=== PATIENT | female | born 1945 | race Hispanic/Latino ===

== ENCOUNTER 2017-07-24 19:59 | Emergency (ER) | payer MEDICARE ==
[2017-07-24 20:01] VITALS: BMI 23.3
--- NOTE | 2017-07-24 20:19 | ED PDOC ---
HPI: Trauma/Fall - HPI Time Seen by Provider: 07/24/17 20:05 Chief Complaint (Nursing): Upper Extremity Problem/Injury History Per: Patient History/Exam Limitations: no limitations Onset/Duration Of Symptoms: Mins Additional Complaint(s): Hx of osteopenia presenting with fall, states she slipped and fell, states the most injury occurred in her R arm where she braced herself, states that she also hit her head but has no pain there nor headache. No neck pain, no back pain. States she also has some rib pain when sitting up but does not feel shortness of breath. No numbness, tingling, or other neurological symptom. - Fall Fall:Prior To Injury: Tripped, Slipped. denies: Passed Out, Almost Passed Out, [place] Lightheaded, Vertigo Past Medical History Reviewed: Historical Data, Nursing Documentation, Vital Signs Vital Signs: Last Vital Signs Temp 96.6 F L 07/24/17 20:01 Pulse 94 H 07/24/17 20:01 Resp 17 07/24/17 20:01 BP 127/82 07/24/17 20:01 Pulse Ox 98 07/24/17 20:01 - Family History Family History: States: Unknown Family Hx - Allergies Allergies/Adverse Reactions: Allergies Allergy/AdvReac Type Severity Reaction Status Date / Time Penicillins Allergy Verified 07/24/17 20:14 Review of Systems ROS Statement: Except As Marked, All Systems Reviewed And Found Negative Physical Exam - Reviewed Nursing Documentation Reviewed: Yes Vital Signs Reviewed: Yes - Physical Exam Appears: Positive for: Well, Non-toxic, No Acute Distress Head Exam: Positive for: NORMAL INSPECTION, NORMOCEPHALIC. Negative for: ATRAUMATIC (R sided forehead with hematoma, small, 4x4cm) Skin: Positive for: Normal Color Eye Exam: Positive for: Normal appearance, EOMI, PERRL ENT: Positive for: Normal ENT Inspection Neck: Positive for: Normal, Painless ROM, Supple Cardiovascular/Chest: Positive for: Regular Rate, Rhythm. Negative for: Chest Non Tender (R sided rib tenderness, no stepoff/crepitus/bruising) Respiratory: Positive for: Normal Breath Sounds. Negative for: Decreased Breath Sounds, Accessory Muscle Use, Crackles, Rales, Rhonchi Gastrointestinal/Abdominal: Positive for: Normal Exam, Bowel Sounds, Soft. Negative for: Tenderness Back: Positive for: Normal Inspection. Negative for: Vertebral Tenderness, Decreased ROM, Muscle Spasm Rectal: Positive for: Deferred Extremity: Positive for: Swelling (L wrist swelling with deformity, warm and well perfused with good distal pulses, decreased ROM of flexion and extension of the wrist) Neurologic/Psych: Positive for: Alert, plateman II-XII, Oriented. Negative for: Motor/Sensory Deficits, Mood/Affect - ECG O2 Sat by Pulse Oximetry: 98 Medical Decision Making Medical Decision MakinPM A/P: Hx of osteopenia with traumatic fall and wrist pain -likely wrist fracture -patient takes aspirin at night, will get head CT as well -will get xrays of the wrist for likely fracture, likely muscle pull/strain from fall in ribs but will get xray to r/o fracture 1130PM -Status post successful reduction of fracture, more anatomical alignment achieved, however still some displacement, will likely need OR repair as outpatient, patient states she will followup at [facility] for her orthopedic care -CT head negative -Patient is now awake, alert, steady gait, feeling better after versed/reduction -Patient given CT of findings, return precautions were discussed -Ambulatory, pleasant, gracious upon discharge Procedures - Additional Procedures Progress: Fracture Reduction Procedure Note: Performed at bedside Patient placed on monitor, IV, O2 established Patient given 6mg of versed IV with adequate response Patient remained awake, breathing normally, however more comfortable, patient able to relay feedback during procedure Fingers placed in finger traps, weight placed on arm using 4 IV bags Successful realignment created Sugar tong placed with EDT Salo assisting Neurovascularly intact afterwards, patient reported feeling better Disposition - Clinical Impression Clinical Impression: Fracture of wrist - Patient ED Disposition Is Patient to be Admitted: No - Disposition Referrals: Ezekiel Pandya MD [Staff Provider] - Disposition: Routine/Home Disposition Time: 06:13 Condition: IMPROVED Additional Instructions: It was an absolute pleasure to help you today. Please followup with your orthopedic surgeon in 1 week. Take advil or tylenol for pain. Instructions: Wrist Fracture (DC), Closed Fracture Reduction, Cast Care Forms: [employer] ([place]ots[place]an)
[2017-07-24] MEDS ORDERED: diaZEpam 10 mg/2 ml Inj IVP ONE (21:26)
[2017-07-24] MEDS ORDERED: Midazolam 2 MG/2 ML VIAL IV ONE (21:44)
[2017-07-24] MEDS ORDERED: Flumazenil 0.1 mg/ml Inj (5ml) IVP ONE (21:48)
--- NOTE | 2017-07-24 22:15 | RAD ---
EXAM: XR Right Ribs and AP Chest, 3 or More Views EXAM DATE/TIME: 07/24/2017 8:15 PM CLINICAL HISTORY: 72 years old, female; Injury or trauma; Fall; Work related; Initial encounter; Rib area; Blunt trauma (contusions or hematomas); Injury details: Pain under breastbone; Additional info: S/P fall TECHNIQUE: Frontal and oblique views of the right ribs and frontal view of the chest. COMPARISON: No relevant prior studies available. FINDINGS: LUNGS: Lungs are hyperinflated, suggestive of underlying COPD. Hazy density projected over both lung bases, which is symmetric in appearance, and is felt to be related to overlying soft tissues. No evidence of significant focal consolidation/infiltrate in the lungs. No evidence of diffuse pulmonary vascular congestion. PLEURAL SPACE: No pneumothorax or pleural effusions seen. HEART: Heart does not appear significantly enlarged. MEDIASTINUM: No radiographic evidence of significant pneumomediastinum. BONES/JOINTS: Bony structures appear demineralized. Scoliotic curvature of the spine. Bony protrusion arising from the right distal humeral shaft, most likely an exostosis. No acute fractures are seen radiographically. VASCULATURE: Thoracic aorta appears mildly ectatic. IMPRESSION: - No radiographic evidence of significant acute traumatic injury in the chest. - Hyperinflation, suggestive of underlying COPD. - See above for multiple remaining non-emergent findings.
--- NOTE | 2017-07-24 22:25 | RAD ---
EXAM: XR Right Wrist Complete, 3 or More Views EXAM DATE/TIME: 07/24/2017 8:15 PM CLINICAL HISTORY: 72 years old, female; Injury or trauma; Fall; Work related; Initial encounter; Blunt trauma (contusions or hematomas; Wrist; Right TECHNIQUE: Frontal, lateral and oblique views of the right wrist. COMPARISON: No relevant prior studies available. FINDINGS: BONES/JOINTS: Acute fracture of the distal radius. This involves the articular surface diffusely. It is markedly comminuted, and is associated with significant impaction of fracture fragments. There is shortening of the distal radius relative to the ulna. There is mild apex dorsal angulation at the fracture site. Acute fracture of the ulnar styloid process, which is minimally displaced. Bony structures appear demineralized. No additional acute fractures seen. Alignment of the carpal bones is within normal limits. SOFT TISSUES: Back right hallux. IMPRESSION: - Acute, comminuted, intra-articular fracture of the distal radius, associated with significant impaction. Please see above for a full description. - Fracture of the ulnar styloid process. - See above for remaining findings.
--- NOTE | 2017-07-24 23:22 | CT ---
EXAM: CT Head Without Intravenous Contrast EXAM DATE/TIME: 07/24/2017 10:25 PM CLINICAL HISTORY: 72 years old, female; Injury or trauma; Fall; Work related; Initial encounter; Abrasion; Scalp; Additional info: Head injury on asa TECHNIQUE: Axial computed tomography images of the head/brain without intravenous contrast. All CT scans at this facility use one or more dose reduction techniques, viz.: automated exposure control; ma/kV adjustment per patient size (including targeted exams where dose is matched to indication; i.e. head); or iterative reconstruction technique. Coronal and sagittal reformatted images were created and reviewed. COMPARISON: No relevant prior studies available. FINDINGS: LIMITATIONS: Mild streak/motion artifact. BRAIN: Focal area of low density in the left basal ganglia, most compatible with an old/chronic lacunar infarct. Physiologic calcification in the left basal ganglia. No acute abnormality identified. No acute hemorrhage seen within the brain. No acute extra-axial fluid collections visualized. No evidence of significant mass effect within the brain. VENTRICLES: No evidence of significant hydrocephalus. BONES/JOINTS: No acute fractures or other acute bony abnormality noted. SOFT TISSUES: No acute abnormality of the visualized soft tissues is seen. SINUSES: Mild mucosal thickening in the left maxillary sinus. Remaining visualized paranasal sinuses appear clear. MASTOID AIR CELLS: Mastoid air cells appear clear. IMPRESSION: - No evidence of acute intracranial injury or fractures. - See above for remaining findings.
[2017-07-25 06:57] VITALS: BP 112/62; PULSE 70; RESP 13; TEMP 98.6; O2SAT 100
--- NOTE | 2017-07-25 09:25 | RAD ---
PROCEDURE: Right Wrist Radiographs. HISTORY: post-reduction COMPARISON: COMPARISON IS MADE WITH THE PREVIOUS STUDY. FINDINGS: BONES: AGAIN NOTED IS IMPACTED COMMINUTED FRACTURE AT THE DISTAL RIGHT RADIUS EXTENDING TO THE ARTICULAR SURFACE AND ASSOCIATED WITH SLIGHT VOLAR ANGULATION. INTERVAL MILD IMPROVEMENT IN THE ALIGNMENT OF THE FRACTURE. ACUTE NONDISPLACED FRACTURE AT THE STYLOID PROCESS OF THE RIGHT ULNA AGAIN NOTED. JOINTS: No evidence of dislocation. SOFT TISSUES: Normal. OTHER FINDINGS: None. IMPRESSION: The right wrist in cast. Interval mild improvement in the alignment of the bones at the distal radius and ulna fractures.
== END 2017-07-25 06:35 | disposition home or self-care (01) ==
LOC: H.ER 19:59
DX: S62.101A Fracture of unspecified carpal bone, right wrist, initial encounter for closed fracture (principal); W19.XXXA Unspecified fall, initial encounter; Z79.82 Long term (current) use of aspirin; Z88.0 Allergy status to penicillin
CPT/HCPCS: 25660; 70450; 71101; 73110; 96374; 99285; J2250

== ENCOUNTER 2017-07-30 10:55 | Emergency (ER) | payer OTHER, MEDICARE ==
[2017-07-30 10:55] VITALS: BMI 23.3
[2017-07-30] MEDS ORDERED: Oxycodone/Acetaminophen 5/325 mg Tab PO STA (11:33)
[2017-07-30] MEDS ORDERED: Sodium Chloride 0.9% 1,000 ML IV STA (11:49)
--- NOTE | 2017-07-30 12:09 | ED PDOC ---
Upper Extremity Pain/Injury Time Seen by Provider: 07/30/17 11:28 Chief Complaint (Nursing): Upper Extremity Problem/Injury Chief Complaint (Provider): Upper Extremity Problem/Injury History Per: Patient History/Exam Limitations: no limitations Onset/Duration Of Symptoms: Days (x2) Current Symptoms Are (Timing): Still Present Additional Complaint(s): 72 y/o female with no significant pmhx, who presents to the ED for an evaluation of a right hand pain x2 days. Patient was seen here 07/24/2017 s/p fall. She was diagnosed with a distal radial fracture which was reduced in ED and sugar tong splint was placed. She reports numbness, tingling, and swelling onset 2 days ago in her fingers. Patient states her hands dont feel cold. Past Medical History Reviewed: Historical Data, Nursing Documentation, Vital Signs Vital Signs: Last Vital Signs Temp 98.1 F 07/30/17 11:32 Pulse 57 L 07/30/17 11:32 Resp 18 07/30/17 11:32 BP 74/47 L 07/30/17 11:32 Pulse Ox 96 07/30/17 11:32 - Medical History PMH: No Chronic Diseases - Surgical History Surgical History: No Surg Hx - Family History Family History: States: Unknown Family Hx - Social History Current smoker - smoking cessation education provided: No Alcohol: None Drugs: Denies - Home Medications Home Medications: Ambulatory Orders Medication Instructions Recorded oxyCODONE/Acetaminophen [Percocet 1 tab PO Q6 PRN #20 tab 07/30/17 5/325 mg Tab] - Allergies Allergies/Adverse Reactions: Allergies Allergy/AdvReac Type Severity Reaction Status Date / Time Penicillins Allergy Verified 07/24/17 20:14 Review of Systems ROS Statement: Except As Marked, All Systems Reviewed And Found Negative Musculoskeletal: Positive for: Hand Pain (right) Neurological: Positive for: Numbness (and tingling of right hand) Physical Exam - Reviewed Nursing Documentation Reviewed: Yes Vital Signs Reviewed: Yes - Physical Exam Appears: Positive for: Non-toxic, No Acute Distress Head Exam: Positive for: ATRAUMATIC, NORMAL INSPECTION, NORMOCEPHALIC Skin: Positive for: Normal Color, Warm, Dry. Negative for: Rash Eye Exam: Positive for: EOMI, Normal appearance, PERRL Neck: Positive for: Normal, Painless ROM, Supple Cardiovascular/Chest: Positive for: Regular Rate, Rhythm. Negative for: Murmur Respiratory: Positive for: Normal Breath Sounds. Negative for: Respiratory Distress Gastrointestinal/Abdominal: Positive for: Normal Exam, Soft. Negative for: Tenderness Back: Positive for: Normal Inspection. Negative for: L CVA Tenderness, R CVA Tenderness, Vertebral Tenderness Extremity: Positive for: Normal ROM, Other (sugar splint in place on right arm; ecchymosis and edema in digits of right hand, sensation in tact and moving all digits) Neurologic/Psych: Positive for: Alert, Oriented. Negative for: Motor/Sensory Deficits - ECG O2 Sat by Pulse Oximetry: 96 (RA) Pulse Ox Interpretation: Normal Medical Decision Making Medical Decision Making: Initial Impression: Generalized joint pain Plan: Splint removed and patient complaining of increasing pain. Patient states she feels as if shell pass out from the pain. Blood pressure decreased to 74/47. Patient placed in trendelenburg and IV line placed. Repeat BP 130 systolic. IV fluids started. --Glucose, POC --Morphine 1mg IV --Motrin 600mg PO --1LNS --Percocet 1 tab --Right Wrist X-Ray --Reevaluation ----- Scribe Attestation: Documented by Lang Sue, acting as a scribe for Smii Welch MD. Provider Scribe Attestation: All medical record entries made by the Scribe were at my direction and personally dictated by me. I have reviewed the chart and agree that the record accurately reflects my personal performance of the history, physical exam, medical decision making, and the department course for this patient. I have also personally directed, reviewed, and agree with the discharge instructions and disposition. ------ Time: 1401 WRIST XRAY RESULTS FINDINGS: BONES: Current study re- demonstrates a comminuted impacted fracture of the distal right radius with dorsal angulation of distal fragments. Fracture of the ulna styloid again noted. . No significant callus formation identified JOINTS: Normal. No dislocation. SOFT TISSUES: Normal. OTHER FINDINGS: None. IMPRESSION: Re- demonstrated angulation is impacted/comminuted fractures of the distal right radius with dorsal angulation of the distal fragment. Minimally displaced fracture distal ulna styloid again noted. No significant callus formation is identified. New sugar tong splint placed, yaron wrap adjusted by me, sling, pt without paresthesias in fingers, sensation intact, <2 sec cap refill, edema improved. Scribe Attestation: Documented by Jm Elena, acting as a scribe for Dr. Simi Welch. Provider Scribe Attestation: All medical record entries made by the Scribe were at my direction and personally dictated by me. I have reviewed the chart and agree that the record accurately reflects my personal performance of the history, physical exam, medical decision making, and the department course for this patient. I have also personally directed, reviewed and agree with the discharge instructions and disposition. Disposition - Clinical Impression Clinical Impression: Fracture of wrist - Disposition Disposition: Routine/Home Disposition Time: 14:52 Condition: IMPROVED Additional Instructions: FOLLOW-UP WITH DR. ATWOOD SCHEDULED. Prescriptions: oxyCODONE/Acetaminophen [Percocet 5/325 mg Tab] 1 tab PO Q6 PRN #20 tab PRN Reason: Pain, Moderate (4-7) Instructions: Wrist Fracture (DC) Forms: [employer] (Angolan)
--- NOTE | 2017-07-30 14:03 | RAD ---
PROCEDURE: Right Wrist Radiographs. Three views of the right wrist performed through a fiberglass cast which obscures fine soft tissue and bone detail. HISTORY: Re- evaluation. COMPARISON: Comparison made with radiographs right wrist 07/24/2017. FINDINGS: BONES: Current study re- demonstrates a comminuted impacted fracture of the distal right radius with dorsal angulation of distal fragments. Fracture of the ulna styloid again noted. . No significant callus formation identified JOINTS: Normal. No dislocation. SOFT TISSUES: Normal. OTHER FINDINGS: None. IMPRESSION: Re- demonstrated angulation is impacted/comminuted fractures of the distal right radius with dorsal angulation of the distal fragment. Minimally displaced fracture distal ulna styloid again noted. No significant callus formation is identified
[2017-07-30 15:07] VITALS: BP 112/60; PULSE 81; RESP 14; TEMP 97.9; O2SAT 100
== END 2017-07-30 15:08 | disposition home or self-care (01) ==
LOC: H.ER 10:55
DX: Z47.89 Encounter for other orthopedic aftercare (principal); Z88.0 Allergy status to penicillin
CPT/HCPCS: 29125; 73110; 82948; 96374; 99281; J2270; J7030